=== PATIENT | male | born 1960 | race Caucasian/White ===

== ENCOUNTER → 2017-05-15 | Outpatient (CLI) | payer OTHER ==
--- NOTE | 2017-05-15 11:50 | RADIOLOGY REPORT (SQ) ---
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 TECHNIQUE: Noncontrast scanning through the paranasal sinuses using bone algorithm. Reconstructed MPR images reviewed. All images stored on PACS. All CT scanners at this facility use dose modulation, iterative reconstruction, and/or weight based d osing when appropriate to reduce radiation dose to as low as reasonably achievable (ALARA). [facility]: Dose Right [facility]: CareDose [facility]: Dose Right [facility]: Teradose 4D [facility]: [employer] RADIATION DOSE: mGy. LIMITATIONS: None. FINDINGS: There has been right maxillary antrectomy. Mucosal thickening in the right maxillary sinu s. Mucoperiosteal thickening in the nasofrontal recesses bilaterally. The infundibula are patent. No fluid levels. Nasal septum is near midline. IMPRESSION: Postsurgical changes. Chronic right maxillary sinusitis. TECHNICAL DOCUMENTATION: JOB ID: [id number] Quality ID # [id number]: Final reports with documentation of one or more dose reduction techniques (e.g., Au tomated exposure control, adjustment of the mA and/or kV according to patient size, use of iterative reconstruction technique) 2010 [employer]- All Rights Reserved Reading location - IP/workstation name: [email or web address]
== END ==
LOC: RAD 11:10
PROVIDERS: ATTEND Otolaryngology
DX: Z85.22 Personal history of malignant neoplasm of nasal cavities, middle ear, and accessory sinuses (principal)
CPT/HCPCS: 70486

== ENCOUNTER 2019-03-25 16:24 | Emergency (ER) | payer OTHER ==
--- NOTE | 2019-03-25 17:11 | ER Document Report ---
ED Medical Screen (RME) - General Chief Complaint: Abdominal Pain Stated Complaint: ABDOMINAL PAIN Time Seen by Provider: 03/25/19 17:07 Primary Care Provider: ROBSON PIERSON DO [Primary Care Provider] - Follow up as needed Mode of Arrival: Ambulatory Information source: Patient Notes: 58-year-old metastatic cancer patient is here today for fever and abdominal pain. He called his oncologist at [facility] and they sent him to the emergency room due to the pain and fever. 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 He is to restart his chemo on 03 April. He is in here today because he is sick. I have greeted and performed a rapid initial assessment of this patient. A comprehensive ED assessment and evaluation of the patient, analysis of test results and completion of medical decision making process will be conducted by an additional ED providers. TRAVEL OUTSIDE OF THE [place] IN LAST 30 DAYS: No Doctor's Discharge - Discharge Referrals: ROBSON PIERSON DO [Primary Care Provider] - Follow up as needed
[2019-03-25] MEDS ORDERED: ACETAMINOPHEN 325 MG TABLET PO ONE (17:12)
--- NOTE | 2019-03-25 17:39 | RADIOLOGY REPORT (SQ) ---
EXAM DESCRIPTION: CHEST 2 VIEWS COMPLETED DATE/TIME: 03/25/2019 5:28 pm REASON FOR STUDY: Metastatic cancer with fever COMPARISON: None. EXAM PARAMETERS: NUMBER OF VIEWS: two views TECHNIQUE: Digital Frontal and Lateral radiographic views of the chest acquired. RADIATION DOSE: NA LIMITATIONS: none FINDINGS: LUNGS AND PLEURA: Faint streaky density in the left lung base. Right lung clear. No pleu ral effusion. No pneumothorax. MEDIASTINUM AND HILAR STRUCTURES: No masses or contour abnormalities. HEART AND VASCULAR STRUCTURES: Heart normal size. No evidence for failure. BONES: No acute findings. HARDWARE: None in the chest. OTHER: No other significant finding. IMPRESSION: PROBABLE ATELECTASIS OR SCARRING IN THE LEFT LUNG BASE. EARLY PNEUMONIA PROBABLY LESS L IKELY BUT NOT EXCLUDED. TECHNICAL DOCUMENTATION: JOB ID: [id number] [employer]- All Rights Reserved Reading location - IP/workstation name: [email or web address]
[2019-03-25 18:13] LABS: ABSOLUTE EOSINOPHILS # (AUTO) 0.2 10^3/uL (0.0-0.6); BASOPHILS % (AUTO) 0.3 % (0-2); TOTAL CELLS COUNTED % (AUTO) 100 %
[2019-03-25 18:19] LABS: ABSOLUTE LYMPHOCYTES (AUTO) 0.5 10^3/uL (0.5-4.7); ABSOLUTE MONOCYTES (AUTO) 1.7 10^3/uL (0.1-1.4); ABSOLUTE NEUT (AUTO) 7.8 10^3/uL (1.7-8.2); EOSINOPHILS % (AUTO) 1.9 % (0-6); HEMOGLOBIN 11.7 g/dL (13.5-17.0); LYMPHOCYTES % (AUTO) 5.2 % (13-45); MEAN CORPUSCULAR HEMOGLOBIN 34.6 pg (27.0-33.4); MEAN CORPUSCULAR HGB CONC 36.6 g/dL (32.0-36.0); MEAN CORPUSCULAR VOLUME 95 fl (80-97); MONOCYTES % (AUTO) 16.7 % (3-13); PLATELET COUNT 243 10^3/uL (150-450); RED BLOOD COUNT 3.38 10^6/uL (4.35-5.55); RED CELL DISTRIBUTION WIDTH 18.9 % (11.5-14.0); SEGMENTED NEUTROPHILS % (AUTO) 75.9 % (42-78); WHITE BLOOD COUNT 10.3 10^3/uL (4.0-10.5)
[2019-03-25 18:33] LABS: ALBUMIN 4.2 g/dL (3.5-5.0); ALKALINE PHOSPHATASE 138 U/L (38-126); ANION GAP 8 (5-19); ASPARTATE AMINO TRANSFERASE 37 U/L (17-59); BILIRUBIN,TOTAL 0.6 mg/dL (0.2-1.3); BLOOD UREA NITROGEN 14 mg/dL (7-20); CALCIUM 9.2 mg/dL (8.4-10.2); CARBON DIOXIDE 32 mmol/L (22-30); CHLORIDE 96 mmol/L (98-107); GLUCOSE 124 mg/dL (75-110); POTASSIUM 4.5 mmol/L (3.6-5.0); TOTAL PROTEIN 6.7 g/dL (6.3-8.2)
--- NOTE | 2019-03-25 19:10 | ER Document Report ---
ED General - General Chief Complaint: Fever Stated Complaint: ABDOMINAL PAIN Time Seen by Provider: 03/25/19 17:07 Primary Care Provider: ROBSON PIERSON DO [ASSOCIATE] - Follow up as needed Mode of Arrival: Ambulatory Information source: Patient, Relative TRAVEL OUTSIDE OF THE [place] 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 The patient denies known sick contacts, recent travel, ingestion of uncooked foods. The patient had chemo several weeks ago and he is due for more chemo in a couple weeks. The patient has no history of kidney stones, gallstones, gallbladder problems and he still has his appendix. The patient says coughing and taking deep breaths makes the pains worse. - Related Data Allergies/Adverse Reactions: No Known Allergies Allergy (Verified 03/25/19 17:11) Past Medical History - General Information source: Patient, Relative - Social History Smoking Status: Former Smoker Frequency of alcohol use: None Drug Abuse: None Lives with: Spouse/Significant other Family History: Reviewed & Not Pertinent Patient has suicidal ideation: No Patient has homicidal ideation: No Malignancy Medical History: Reports Other - Squamous Cell Carcinoma for Face/Sinus which spread to brain, liver, spine Review of Systems - Review of Systems Constitutional: Fever, Weakness EENT: No symptoms reported Cardiovascular: No symptoms reported, Heart racing Gastrointestinal: Abdominal pain. denies: Diarrhea, Nausea, Vomiting, Constipation Genitourinary: No symptoms reported Male Genitourinary: No symptoms reported Musculoskeletal: No symptoms reported Skin: Other - diaphoresis Neurological/Psychological: No symptoms reported -: Yes All other systems reviewed and negative Physical Exam - Vital signs Vitals: Temp Pulse Resp BP Pulse Ox 100.6 F H 93 22 H 104/57 L 104 H 03/25/19 17:07 03/25/19 17:07 03/25/19 17:07 03/25/19 17:07 03/25/19 17:07 - Notes Notes: GENERAL: Chronically ill -appearing, well-nourished and in no acute distress. HEAD: Atraumatic, normocephalic. EYES: Pupils equal round and reactive to light, extraocular movements intact, sclera anicteric, conjunctiva are normal. ENT: TMs normal, nares patent, oropharynx clear without exudates. Moist mucous membranes. NECK: Normal range of motion, supple without lymphadenopathy or JVD. LUNGS: Breath sounds clear to auscultation bilaterally and equal. No wheezes rales or rhonchi. HEART: Regular rate and rhythm without murmurs, rubs or gallops. ABDOMEN: Soft, moderate tendneness in RUQ quadrant, normoactive bowel sounds. No guarding, no rebound. No masses appreciated. EXTREMITIES: Normal range of motion, no pitting or edema. No clubbing or cyanosis. NEUROLOGICAL: Cranial nerves II through XII grossly intact. Normal speech, normal gait. PSYCH: Normal mood, normal affect. SKIN: Warm, Dry, normal turgor, no rashes or lesions noted. Course - Re-evaluation Re-evalutation: 03/25/19 22:47 The patient has a history of metastatic cancer. He is here for RUQ abdominal pain and fevers. CT shows no acute issues with his gallbladder or appendix, known liver mets, but there seems to be a new concern of bibasilar pneumonia. Patient could have pneumonia with referred abdominal pains. Patient says coughing and taking deep breaths makes the abdominal pains worse. Patient treated with fluids, morphine, and Levaquin in the ER. Patient DCed with a course of Levaquin. - Vital Signs Vital signs: Temp Pulse Resp BP Pulse Ox 100.6 F H 93 16 109/63 94 03/25/19 17:07 03/25/19 17:07 03/25/19 21:00 03/25/19 20:03 03/25/19 21:00 - Laboratory Result Diagrams: 03/25/19 17:43 03/25/19 17:43 Laboratory results interpreted by me: 03/25/19 03/25/19 03/25/19 17:43 17:43 20:56 RBC 3.38 L Hgb 11.7 L Hct 32.0 L MCH 34.6 H MCHC 36.6 H RDW 18.9 H Lymph % (Auto) 5.2 L Coryell % (Auto) 16.7 H Absolute Monos (auto) 1.7 H Sodium 135.6 L Chloride 96 L Carbon Dioxide 32 H Glucose 124 H Alkaline Phosphatase 138 H Urine Urobilinogen 4.0 H - Diagnostic Test Radiology reviewed: Image reviewed, Reports reviewed Discharge - Discharge Clinical Impression: Abdominal pain Qualifiers: Abdominal location: upper abdomen, unspecified Qualified Code(s): R10.10 - Upper abdominal pain, unspecified Pneumonia Qualifiers: Pneumonia type: due to unspecified organism Laterality: bilateral Lung location: lower lobe of lung Qualified Code(s): J18.9 - Pneumonia, unspecified organism Condition: Stable Disposition: HOME, SELF-CARE Instructions: Abdominal Pain ([facility]), Pneumonia ([facility]) Additional Instructions: Take Levaquin as prescribed. Use Tylenol and Motrin for fevers and body aches. Follow up with your primary care doctor and with your Oncologist and tell them you were in the ER and had lab work and a CT of your abdomen/pelvis. Prescriptions: Levofloxacin [Levaquin 750 mg Tablet] 750 mg PO DAILY #5 tablet Referrals: ROBSON PIERSON DO [ASSOCIATE] - Follow up as needed
[2019-03-25] MEDS ORDERED: NORMAL SALINE 1000 ML 1,000 ML IV ONE (19:12)
[2019-03-25] MEDS ORDERED: MORPHINE SULFATE 10 MG/ML INJ IV PRN (19:12)
[2019-03-25] MEDS ORDERED: ACETAMINOPHEN 325 MG TABLET ONE (19:55)
--- NOTE | 2019-03-25 21:20 | RADIOLOGY REPORT (SQ) ---
EXAM DESCRIPTION: CT scan of the abdomen and pelvis with IV contrast CLINICAL HISTORY: 58 years Male; eval for abdominal infection. patient has RUQ pain TECHNIQUE: CT of the abdomen and pelvis with intravenous contrast. Delayed imaging of the abdomen and pelvis was also performed. All CT scans at this facility use dose modulation, iterative reconstruction, and/or weight based dosing when appropriate to reduce radiation dose to as low as reasonably achievable. This exam was performed according to our department optimization program which includes automated exposure control, adjustment of the mA and/or kv according to patient size and/or use of iterative reconstruction technique. COMPARISON: None. FINDINGS: Lower chest: Dependent densities present in the lung bases posteriorly which may represent atelectasis or infiltrate. No pneumothorax. No pleural effusion. Heart size is within normal limits. Abdomen: Liver and biliary tree: Multiple low density masses are present throughout the liver parenchyma concerning for metastatic disease. A lesion in the dome of the left liver lobe measures 5.7 cm. In the midportion of the right liver lobe adjacent to the liver dome is a 3.7 cm lesion. In the inferior aspect of the right liver lobe adjacent to the gallbladder fossa is a 4.2 cm lesion. Multiple other masses are seen. Portal vein and hepatic veins are patent. The gallbladder is unremarkable. No biliary dilatation. Pancreas: Normal Spleen:Within normal limits Kidneys: Kidneys are normal in size, shape and position. No stones. No mass or hydronephrosis. Symmetric renal enhancement bilaterally. On delayed images the kidneys demonstrate symmetric pyelograms. The ureters are unremarkable. Ureteral jets are seen extending into the bladder. Adrenal glands:Within normal limits Vascular structures: Atherosclerotic vascular calcifications in the aorta and iliac vessels. No aneurysm. The mesenteric vessels are patent Retroperitoneum: No mass or lymphadenopathy Abdominal wall: normal GI: Stool is seen throughout the colon. No obvious mass. Small bowel is decompressed. Stomach is mostly empty and not well assessed. Appendix: The appendix appears normal. General: No free air. No free fluid Pelvis: Lymph nodes: No mass or lymphadenopathy Bladder: On the delayed images there is a stream of contrast seen in the bladder. No obvious bladder abnormality. Pelvis: No pelvic mass or adenopathy. Bones: No acute bone findings. IMPRESSION: 1. Bibasilar volume loss in the lung parenchyma. 2. Multiple liver masses consistent with metastatic disease. The primary neoplasm is not identified on this exam. 3. No acute process is seen in the gallbladder. No evidence of appendicitis. THIS REPORT CONTAINS FINDINGS THAT MAY BE CRITICAL TO PATIENT CARE: The findings were verbally discussed via telephone conference with Dr. GEORGE HERNANDEZ at 8:16 PM FIELD SALES ENGINEER on 03/25/2019 . Thank you
[2019-03-25 21:23] LABS: AMORPHOUS SEDIMENT,URINE TRACE /HPF; APPEARANCE,URINE CLOUDY; BILIRUBIN,URINE NEGATIVE (NEGATIVE); COLOR,URINE YELLOW; GLUCOSE, URINE NEGATIVE (NEGATIVE); KETONES,URINE NEGATIVE (NEGATIVE); PROTEIN,URINE NEGATIVE (NEGATIVE); URINE SPECIFIC GRAVITY 1.026
[2019-03-25] MEDS ORDERED: LEVOFLOXACIN 750 MG/D5W RTU 750 MG/150 ML RTUPB IV ONE ×2 (22:42→23:15)
[2019-03-26 02:08] VITALS: BP 119/69
== END 2019-03-26 02:10 | disposition home or self-care (01) ==
LOC: ER 16:24
DX: J18.9 Pneumonia, unspecified organism (principal); C31.9 Malignant neoplasm of accessory sinus, unspecified; C78.7 Secondary malignant neoplasm of liver and intrahepatic bile duct; C79.51 Secondary malignant neoplasm of bone; C79.31 Secondary malignant neoplasm of brain; R05 Cough; R10.11 Right upper quadrant pain; R10.811 Right upper quadrant abdominal tenderness; R50.9 Fever, unspecified; R53.1 Weakness; Z79.899 Other long term (current) drug therapy; Z87.891 Personal history of nicotine dependence
CPT/HCPCS: 36415; 87040; 83605; 83690; 85025; 80053; 81001; 71046; 74177; J2270; J7030; J1956

== ENCOUNTER 2019-10-06 16:52 | Emergency (ER) | payer OTHER ==
[2019-10-06 17:04] VITALS: BP 107/68
--- NOTE | 2019-10-06 18:01 | ER Document Report ---
ED Medical Screen (RME) - General Chief Complaint: Weakness Stated Complaint: PAIN ALL OVER TRAVEL OUTSIDE OF THE [place] IN LAST 30 DAYS: No - HPI Notes: 10/06/19 17:39 58-year-old male with a history of squamous cell carcinoma that metastasized to his brain and lung 8-9 years ago. reports for the last 2 to 3 days he has had weakness, dizziness all over. Patient states he normally walks without any assistance but has needed a cane and today's needing a wheelchair for ambulation. Patient went to [facility] yesterday for these exact symptoms, he had labs done, IV fluids and he recalls that maybe his calcium was too high. He was told after some IV fluids that he was can feel better today. Patient states that he does not feel any better today. Patient is not a strong historian as to what was done yesterday at [facility] or what the diagnosis was. Patient knows that he is feeling weaker, he does have chest pains every time he gets in and out of the wheelchair. Denies any recent trauma or falling. Denies any new medication changes, new foods or new travel. Denies any fevers or chills. I have greeted and performed a rapid initial assessment of this patient. A comprehensive ED assessment and evaluation of the patient, analysis of test results and completion of the medical decision making process will be conducted by additional ED providers. PHYSICAL EXAMINATION: GENERAL: Well-appearing, well-nourished and in no acute distress. HEAD: Atraumatic, normocephalic. EYES: Pupils equal round extraocular movements intact, conjunctiva are normal. NECK: Normal range of motion CV: s1, s2 regular LUNGS: No respiratory distress Musculoskeletal: Subjective tenderness all over on palpation of skin in upper extremities and lower extremities on palpation - Related Data Allergies/Adverse Reactions: No Known Allergies Allergy (Verified 10/06/19 17:31) Home Medications: oxycontin, oxycodone, gabapentin, duloxetine Past Medical History - Social History Chew tobacco use (# tins/day): No Frequency of alcohol use: None Drug Abuse: None Physical Exam - Vital signs Vitals: Temp Pulse Resp BP Pulse Ox 98.0 F 98 20 107/68 96 10/06/19 16:58 10/06/19 16:58 10/06/19 16:58 10/06/19 16:58 10/06/19 16:58 Course - Vital Signs Vital signs: Temp Pulse Resp BP Pulse Ox 98.0 F 98 20 107/68 96 10/06/19 16:58 10/06/19 16:58 10/06/19 16:58 10/06/19 16:58 10/06/19 16:58
[2019-10-06 18:12] LABS: ABSOLUTE EOSINOPHILS # (AUTO) 0.2 10^3/uL (0.0-0.6); ABSOLUTE LYMPHOCYTES (AUTO) 0.5 10^3/uL (0.5-4.7); ABSOLUTE MONOCYTES (AUTO) 0.9 10^3/uL (0.1-1.4); ABSOLUTE NEUT (AUTO) 3.7 10^3/uL (1.7-8.2); BASOPHILS % (AUTO) 0.5 % (0-2); EOSINOPHILS % (AUTO) 3.7 % (0-6); HEMOGLOBIN 10.7 g/dL (13.5-17.0); MEAN CORPUSCULAR HEMOGLOBIN 31.7 pg (27.0-33.4); MEAN CORPUSCULAR HGB CONC 33.4 g/dL (32.0-36.0); MEAN CORPUSCULAR VOLUME 95 fl (80-97); MONOCYTES % (AUTO) 16.9 % (3-13); PLATELET COUNT 171 10^3/uL (150-450); RED BLOOD COUNT 3.37 10^6/uL (4.35-5.55); RED CELL DISTRIBUTION WIDTH 18.2 % (11.5-14.0); SEGMENTED NEUTROPHILS % (AUTO) 68.9 % (42-78); TOTAL CELLS COUNTED % (AUTO) 100 %; WHITE BLOOD COUNT 5.4 10^3/uL (4.0-10.5)
[2019-10-06 18:34] LABS: ALBUMIN 3.9 g/dL (3.5-5.0); ALKALINE PHOSPHATASE 434 U/L (38-126); ANION GAP 11 (5-19); ASPARTATE AMINO TRANSFERASE 68 U/L (17-59); BILIRUBIN,TOTAL 0.6 mg/dL (0.2-1.3); BLOOD UREA NITROGEN 8 mg/dL (7-20); CALCIUM 11.5 mg/dL (8.4-10.2); CARBON DIOXIDE 32 mmol/L (22-30); CHLORIDE 95 mmol/L (98-107); CREATINE KINASE 34 U/L (55-170); GLUCOSE 110 mg/dL (75-110); POTASSIUM 3.4 mmol/L (3.6-5.0)
--- NOTE | 2019-10-06 18:39 | RADIOLOGY REPORT (SQ) ---
EXAM DESCRIPTION: CHEST 2 VIEWS IMAGES COMPLETED DATE/TIME: 10/06/2019 6:11 pm REASON FOR STUDY: weakness, dizziness. hx of Ca w/ mets COMPARISON: 03/25/2019 EXAM PARAMETERS: NUMBER OF VIEWS: two views TECHNIQUE: Digital Frontal and Lateral radiographic views of the chest acquired. RADIATION DOSE: NA LIMITATIONS: none FINDINGS: LUNGS AND PLEURA: No opacities, masses or pneumothorax. No pleural effusion. MEDIASTINUM AND HILAR STRUCTURES: No masses or contour abnormalities. HEART AND VASCULAR STRUCTURES: Heart normal size. No evidence for failure. BONES: No acute findings. HARDWARE: None in the chest. OTHER: No other significant finding. IMPRESSION: NO ACUTE RADIOGRAPHIC FINDING IN THE CHEST. TECHNICAL DOCUMENTATION: JOB ID: [id number] 2010 [employer]- All Rights Reserved Reading location - IP/workstation name: [email or web address]
[2019-10-06 18:52] LABS: APPEARANCE,URINE SLIGHTLY-CLOUDY; BILIRUBIN,URINE NEGATIVE (NEGATIVE); COLOR,URINE YELLOW; GLUCOSE, URINE NEGATIVE (NEGATIVE); KETONES,URINE NEGATIVE (NEGATIVE); LEUKOCYTE ESTERASE,URINE NEGATIVE (NEGATIVE); NITRITE,URINE NEGATIVE (NEGATIVE); PROTEIN,URINE NEGATIVE (NEGATIVE); URINE SPECIFIC GRAVITY 1.013
== END 2019-10-06 19:26 | disposition left against medical advice (07) ==
LOC: ER 16:52
DX: R53.1 Weakness (principal); R42 Dizziness and giddiness; R07.9 Chest pain, unspecified; Z79.891 Long term (current) use of opiate analgesic; Z79.899 Other long term (current) drug therapy; Z53.20 Procedure and treatment not carried out because of patient's decision for unspecified reasons
CPT/HCPCS: 36415; 71046; 80053; 81001; 82550; 82962; 83735; 84443; 84484; 85025; 86140; 99281; 99284